=== PATIENT | female | born 1940 | race Caucasian/White ===

== ENCOUNTER 2021-04-18 20:00 | Inpatient (IN) | payer MEDICARE, BC ==
[~2021-04-18] VITALS: Ht 157.5 cm; Wt 60.9 kg
[2021-04-18 20:00] VITALS: BP 130/64
[~2021-04-18 20:00] MED LIST: AMLO-186 PO; LEVO25TA4 PO; POTA10TA12 PO; SENN-22 PO; SPIR25TA5 PO; TRAZ-123 PO
--- NOTE | 2021-04-18 20:26 | PDOC1 ---
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 She had no surgery per her pond sawyer and since that time her postsurgical wounds have been slow to heal. States that she has been on many weeks of oral antibiotics (Bactrim and Keflex, without improvement. She was recently admitted at [facility] and treated with IV vancomycin. It was decided that she would likely benefit from transfer to [facility] to continue her medical therapy along with additional wound care treatment that cannot be provided at [facility]. She reports some pain to bilateral ankles with associated itching. She denies any fever, nausea, chills, vomiting, or diarrhea. Will admit patient for further medical management. Past Medical History Past Medical History Squamous cell cancer of ankles, HTN, GERD, hearing loss. Past Surgical History Past Surgical History Cataract surgery, hysterectomy, Bala fundoplication Family History Family History CVA Social History Smoke: Quit ALCOHOL: none Drugs: None Current Medications Current Medications Active Scripts Active Senna-Time S Tablet (Sennosides/Docusate Sodium) 1 Each Tablet 1 Tab PO DAILY Reported Trazodone Hcl 100 Mg Tablet 1 Tab PO HS Levothyroxine Sodium 25 Mcg Tablet 1 Tab PO DAILY Potassium Chloride 10 Meq Capsule.er 10 Meq PO BID Spironolactone 25 Mg Tablet 1 Tab PO BID Amlodipine Besylate 5 Mg Tablet 5 Mg PO BID Allergies Allergies: Coded Allergies: adhesive tape (Verified Allergy, Intermediate, 02/18/16) ROS Review of System GENERAL: No history of weight change, weakness or fevers. SKIN: No bruising, hair changes or rashes. EYES: No blurred, double or loss of vision. NOSE AND THROAT: No history of nosebleeds, hoarseness or sore throat. HEART: Denies chest pain, denies palpitations. LUNGS: Denies cough, hemoptysis, wheezing or shortness of breath. GASTROINTESTINAL: Constipation. Denies nausea, vomiting, abdominal pain. GENITOURINARY: Denies dysuria, frequency, urgency, hematuria. NEUROLOGIC: Denies history of numbness, tingling, tremor or weakness. PSYCHIATRIC: Denies anxiety, denies depression. ENDOCRINE: No history of heat or cold intolerance, polyuria or polydipsia. EXTREMITIES: Bilateral ankle cellulitis, itching to bilateral ankles. Denies muscle weakness, joint pain, pain on walking or stiffness. Physical Exam Physical Exam General: Alert, Oriented X3, Cooperative, No acute distress HEENT: PERRLA, EOMI Lungs: Clear to auscultation, Normal air movement Heart: RRR, no murmurs Cardiovascular: S1, S2. Distal pulses intact Abdomen: Normal bowel sounds, Soft, No tenderness Extremities: No clubbing, No cyanosis Skin: Erythema of both lower extremities from distal ankle up to mid almanza (>10 cm). There is an eschar over the anterior surface of right almanza. Neuro: Normal speech, Normal tone, Sensation intact Psych/Mental Status: Mental status NL, Mood NL PHYSICAL EXAMINATION: GENERAL: When I saw her, this is a pleasant, alert female. VITAL SIGNS: Her initial vital signs showed a blood pressure 97/62, temperature 98.4 degrees Fahrenheit. Her oxygen saturation was 94% on room air. Her pulse is 73 and regular. HEENT: Head is without trauma. Pupils are reactive. Sclerae nonicteric. Oropharynx clear. NECK: Supple. No bruits. LUNGS: Clear. CARDIOVASCULAR: Regular heart tones. ABDOMEN: Soft. EXTREMITIES: Showed significant swelling, erythema of both lower extremities from the ankles extending up to her knees. SKIN: Warm and dry. There is an eschar and scar tissue over the anterior surface of her right almanza. Distal pulses are intact. PERTINENT LABORATORY STUDIES: The hemoglobin on admission was 13.9 g/dL with a white count of 14,000. Electrolytes within normal range. Blood sugar is 111. Transaminases normal. Cardiac enzymes negative. ASSESSMENT: 1. An 80-year-old female with cellulitis of both legs related to her squamous cell cancer of the skin with recent procedures. 2. Essential hypertension, now she is a bit hypotensive. 3. Mild dehydration, on diuretics. 4. History of asthma. 5. Gastroesophageal reflux disease. VTE Prophylaxis Ordered VTE Prophylaxis Devices: No VTE Pharmacological Prophylaxi: Yes Assessment/Plan Assessment/Plan Bilateral ankle cellulitis Squamous cell cancer of skin s/p recent Mohs procedure Chronic nonhealing ulcers Essential hypertension GERD Plan: We will continue treatment of bilateral lower extremity cellulitis with vancomycin and broaden coverage with IV Zosyn. Please consultation to ID due to failed outpatient treatment Will consult wound care nurse and Dr. Ruiz for possible hyperbaric treatment Follow blood cultures that were performed at [facility]; no growth to date after 2 days. Will obtain Doppler of lower extremities to evaluate arterial blood flow Supportive care Resume home medications FEN - Cardiac diet PPX - Heparin FULL CODE Dispo - inpatient for above Patient names her daughter (Jo Ann Helton) as surrogate decision-maker Justifications for Admission Other Justification HAY CORMIER MD Apr 18, 2021 20:26
[2021-04-18] MEDS ORDERED: ACETAMINOPHEN 325 MG TABLET. PO PRN (20:45)
[2021-04-18] MEDS ORDERED: CALCIUM CARBONATE 500 MG TAB.CHEW PO PRN (20:45)
[2021-04-18] MEDS ORDERED: HYDROcodone/APAP 5/325MG 1 TAB TABLET PO PRN (20:45)
[2021-04-18] MEDS ORDERED: ONDANSETRON PF 4 MG/2 ML VIAL. IVP PRN (20:45)
[2021-04-18] MEDS ORDERED: diphenhydrAMINE 50 MG/ML VIAL IVP PRN ×2 (20:45)
[2021-04-18] MEDS ORDERED: ZOLPIDEM 5 MG TABLET. PO PRN (20:45)
[2021-04-18] MEDS ORDERED: IV NORMAL SALINE 1000ML BAG 1,000 ML IV ONE (20:45)
[2021-04-18] MEDS ORDERED: MAGNESIUM HYDROXIDE 2,400 MG/30 ML ORAL.SUSP. PO PRN (20:45)
[2021-04-18] MEDS ORDERED: PIP/TAZO PER PHARMACY MC PRN (20:45)
[2021-04-18] MEDS ORDERED: MAG HYDROX/ALUMINUM HYD/SIMETH 30 ML ORAL.SUSP PO PRN (20:45)
[2021-04-18] MEDS: VANCOMYCIN PER PHARMACY MC PRN (20:55)
[2021-04-18] MEDS ORDERED: UBID50TA PO (20:55)
[2021-04-18] MEDS ORDERED: LATA7.5D OU (20:55)
[2021-04-18] MEDS ORDERED: FLUT12HF3 IH (20:55)
[2021-04-18] MEDS ORDERED: TRAZ-118 PO (20:58)
[2021-04-18] MEDS ORDERED: SENN8.6T99 PO (20:58)
[2021-04-18] MEDS ORDERED: DIPH25TA24 PO (20:58)
[2021-04-18] MEDS ORDERED: LORazepam 0.5 MG TABLET PO PRN (21:00)
--- NOTE | 2021-04-18 21:01 | NUR ---
Pharmacy Vancomycin Dosing Note S:Consulted to monitor and dose vancomycin started 04/18/21. O:YOCASTA ASENCIO is a 80 year old F with Cellulitis. Height: 5 feet, 2 inches Weight: 60.9 kg [place] Body Weight: 50.10 Adjusted Body Weight: 54.42 Dosing Weight: Actual Other Antibiotics: zosyn LABS: Last BUN: 8 Last Creatinine: 0.8 Creatinine Clearance: 39 mL/min Last WBC: 8.6 Last Procalcitonin: -- Tmax (past 24 hours): afebrile Microbiology: 04/16: blood cx - NGTD (from [facility]) I/O: 840 / -- Drug Levels: Last Trough level: 6.8 on 04/18/21 at 1620 Last dose given 04/17/21 at 1724 Vancomycin Dosing: Loading Dose: 1500 mg x1 Dosing Weight: Actual Target Trough: 10-20 A: Based on: patient trough level from [facility]. P: 1. Begin Vancomycin 1000 mg IV q12h. 2. Follow up trough level as needed. 3. Pharmacy will continue to monitor, follow and adjust therapy as needed. [facility], 04/18/21 [id number]
[2021-04-18 21:41] LABS: BASO # 0.1 x10^3/uL (0.0-0.2); BASO % 1 % (0-3); EOS # 0.1 x10^3/uL (0.0-0.7); EOS % 1 % (0-3); HEMATOCRIT 39.1 % (36.0-47.0); LYMPH # 1.8 x10^3/uL (1.0-4.8); LYMPH % 28 % (24-48); MEAN CORPUSCULAR HEMOGLOBIN 30 pg (25-35); MEAN CORPUSCULAR HGB CONC 33 g/dL (31-37); MEAN CORPUSCULAR VOLUME 90 fL (79-100); MONO # 0.8 x10^3/uL (0.0-1.1); MONO % 12 % (0-9); NEUT # 3.8 x10^3/uL (1.8-7.7); NEUT % 58 % (31-73); PLATELET COUNT 253 x10^3/uL (140-400); RED BLOOD COUNT 4.33 x10^6/uL (3.50-5.40); RED CELL DISTRIBUTION WIDTH 14.2 % (11.5-14.5); WHITE BLOOD COUNT 6.6 x10^3/uL (4.0-11.0)
[2021-04-18 21:55] LABS: ALBUMIN 2.9 g/dL (3.4-5.0); ALBUMIN/GLOBULIN RATIO 0.9 (1.0-1.7); C-REACTIVE PROTEIN 60.1 mg/L (0-3.3); CALCIUM 8.4 mg/dL (8.5-10.1); CREATININE 0.9 mg/dL (0.6-1.0); GFR 60.1; POTASSIUM 3.5 mmol/L (3.5-5.1); TOTAL BILIRUBIN 0.3 mg/dL (0.2-1.0); TOTAL PROTEIN 6.1 g/dL (6.4-8.2)
[2021-04-18 23:00] VITALS: BP 118/56
[2021-04-18] MEDS: PIPERACILLIN/TAZOBACTAM 3.375 GM in IV NORMAL SALINE 50ML 50 ML IV SCH (23:24)
[2021-04-18] MEDS: SENNOSIDES/DOCUSATE 8.6/50MG TABLET. PO SCH (23:25)
[2021-04-18] MEDS: HYDROcodone/APAP 5/325MG 1 TAB TABLET PO PRN (23:25)
[2021-04-18] MEDS: HEPARIN for SUB-Q USE 5,000 UNIT/ML VIAL. SQ SCH (23:39)
[2021-04-18] MEDS: traZODone 100 MG TABLET. PO SCH (23:44)
[2021-04-19] MEDS: LATANOPROST 0.005% OPHTH SOLUTION 2.5ML BOTTLE. OU SCH ×2 (00:05→21:17)
[2021-04-19] MEDS: VANCOMYCIN 1 GM in IV NORMAL SALINE 250ML 250 ML IV SCH ×2 (00:06→10:13)
[2021-04-19 03:00] VITALS: BP 116/58
[2021-04-19] MEDS: PIPERACILLIN/TAZOBACTAM 3.375 GM in IV NORMAL SALINE 50ML 50 ML IV SCH ×4 (06:00→23:42)
--- NOTE | 2021-04-19 06:03 | NUR ---
Transferred from [place]' last night at 1999. Dr. Combs here to see patient.
[2021-04-19 07:15] VITALS: BP 115/58
[2021-04-19 07:36] LABS: BASO % 1 % (0-3); EOS # 0.1 x10^3/uL (0.0-0.7); EOS % 1 % (0-3); HEMATOCRIT 36.2 % (36.0-47.0); LYMPH # 1.5 x10^3/uL (1.0-4.8); LYMPH % 29 % (24-48); MEAN CORPUSCULAR HEMOGLOBIN 30 pg (25-35); MEAN CORPUSCULAR HGB CONC 33 g/dL (31-37); MEAN CORPUSCULAR VOLUME 90 fL (79-100); MONO # 0.6 x10^3/uL (0.0-1.1); MONO % 12 % (0-9); NEUT # 2.8 x10^3/uL (1.8-7.7); NEUT % 57 % (31-73); PLATELET COUNT 231 x10^3/uL (140-400); RED BLOOD COUNT 4.01 x10^6/uL (3.50-5.40); RED CELL DISTRIBUTION WIDTH 13.8 % (11.5-14.5)
[2021-04-19 07:55] LABS: CALCIUM 8.1 mg/dL (8.5-10.1); CREATININE 0.8 mg/dL (0.6-1.0); GFR 68.8; POTASSIUM 3.5 mmol/L (3.5-5.1)
--- NOTE | 2021-04-19 08:06 | RAD ---
Bilateral lower extremity arterial duplex study 04/18/2021 CLINICAL HISTORY: Nonhealing ulcers involving both legs. TECHNIQUE: Using a combination real-time ultrasound imaging and color-flow and pulse Doppler imaging techniques, duplex evaluation of the major arterial structures of both lower extremities was performe d. Multiple images were obtained. FINDINGS: Mild to moderate atheromatous/atherosclerotic plaque formation seen involving the major art erial structures of both lower extremities. Monophasic arterial waveforms are seen involving the post erior tibial, peroneal and anterior tibial arteries along with the dorsalis pedis arteries bilaterall y. The peak systolic velocities taper normally. No hemodynamically significant stenosis or area of oc clusion is seen by ultrasound. IMPRESSION: Mild to moderate atheromatous plaque formation is seen involving the major arterial struc tures of both lower extremities. No hemodynamically significant stenosis or area of occlusion is seen . Electronically signed by: Joe Cedillo MD (04/19/2021 8:03 AM) [id number]
[2021-04-19] MEDS: SENNOSIDES/DOCUSATE 8.6/50MG TABLET. PO SCH ×2 (08:34→21:18)
[2021-04-19] MEDS: HYDROcodone/APAP 5/325MG 1 TAB TABLET PO PRN ×4 (08:34→21:34)
[2021-04-19] MEDS: HEPARIN for SUB-Q USE 5,000 UNIT/ML VIAL. SQ SCH ×2 (08:40→21:29)
[2021-04-19] MEDS: VANCOMYCIN PER PHARMACY MC PRN (09:28)
--- NOTE | 2021-04-19 10:55 | NUR ---
SW following. Discussed with RN, pt from home alone, room air, cardiac diet. ID following. RN advised no SW needs at this time. SW will continue to follow.
[2021-04-19 11:04] VITALS: BP 115/51
--- NOTE | 2021-04-19 12:46 | CONS ---
DATE OF CONSULTATION: 04/19/2021 REFERRING PHYSICIAN: Jose Raul Ly MD. REASON FOR CONSULTATION: Bilateral lower extremity cellulitis. HISTORY OF PRESENT ILLNESS: An 80-year-old female who underwent Mohs surgery at [facility] couple of weeks ago with history of squamous cell carcinoma around her ankles. The patient had been following with wound team at [facility]. She was transferred here for bilateral lower extremity cellulitis, not responding to oral antibiotics. The patient had surgery done by and then was referred to apricot washer for postsurgical wounds, which were slow to heal. The patient had been on oral antibiotics, doxycycline followed by Bactrim and Keflex without improvement. She was recently admitted at [facility] where she received IV vancomycin. The patient was transferred here for further evaluation and treatment. The patient continues to have pain mainly around the right lower extremity wound along with itching. Left lower extremity wound is healing better. She denies any fevers, chills, nausea, vomiting, diarrhea or abdominal pain. PAST MEDICAL HISTORY: Hypertension, GERD, squamous cell carcinoma of the ankles, history of hearing loss. PAST SURGICAL HISTORY: Reviewed. FAMILY HISTORY: Reviewed. SOCIAL HISTORY: Quit smoking, ETOH, illicit drug use. CURRENT MEDICATIONS: IV vancomycin and Zosyn. Other medications reviewed in medication list. ALLERGIES: ADHESIVE TAPE, LATEX AND RAGWEED. REVIEW OF SYSTEMS: Negative except for above in HPI. PHYSICAL EXAMINATION: VITAL SIGNS: Temperature 98.1, pulse 62, respirations 16, blood pressure 115/51, oxygen saturation 96% on room air. GENERAL: Alert, oriented x 3 female, lying in bed comfortably, in no acute distress. HEENT: Normocephalic, atraumatic. Anicteric. No thrush. NECK: Supple, no JVD. LUNGS: Clear bilaterally. No wheezing. HEART: S1, S2. No gallops or murmurs. ABDOMEN: Soft, nontender, nondistended. EXTREMITIES: No edema, no cyanosis. SKIN: There are 2 ulcers present in both the lower extremities, right greater than left around the almanza with some yellowish granulation tissue with surrounding mild redness mainly over the right almanza, tender. No gross purulence. No bone exposure. NEUROLOGIC: Alert, oriented x 3, grossly nonfocal. PSYCHIATRIC: Calm and cooperative. LABORATORY DATA: WBC 5, hemoglobin 12, hematocrit 36.2, platelets 231. Sodium 142, potassium 3.5, chloride 108, bicarb 26, BUN 9, creatinine 0.8, glucose 79. Procalcitonin 0.10. IMAGING: Doppler ultrasound of lower extremity, mild to moderate erythematous plaque formation seen involving the major arterial structures of both lower extremities. No hemodynamically significant stenosis or area of occlusion is seen. IMPRESSION: 1. Bilateral lower extremity nonhealing wounds with mild secondary superimposed cellulitis. 2. History of squamous cell carcinoma, status post Mohs done at [facility] couple of months ago followed by nonhealing wounds, treated with empiric outpatient oral antibiotics, which failed. 3. Hypertension. 4. Gastroesophageal reflux disease. 5. Hearing loss. RECOMMENDATIONS: 1. Discontinue IV vancomycin. 2. Start daptomycin. 3. Continue Zosyn. 4. Add micafungin. 5. Continue local wound care as directed. 6. Elevate lower extremity. 7. Monitor labs and cultures. 8. Continue supportive care. Discussed with RN. Thank you for allowing me to participate in this patient's care. If you have any questions, do not hesitate to contact me. HARRY/LILLI DR: Morteza TID: [phone] VIVIAN
[2021-04-19] MEDS: MICAFUNGIN 100 MG in IV DEXTROSE 5% 100ML 100 ML IV SCH (13:02)
--- NOTE | 2021-04-19 13:31 | PDOC ---
[employer] PROGRESS NOTE Date of Service DOS: DATE: 04/19/21 TIME: 13:26 Chief Complaint Chief Complaint 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 Cataract surgery Hysterectomy History of Present Illness History of Present Illness 04/19/2021: Pt was seen and examined. Chart reviewed. Discussed with Wound Care. Discussed with RN. Pt appears comfortable in NAD and talkative during interview. 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 0.9 % NS running at 50 ml/hr Vitals/I&O Vitals/I&O: Vital Signs Date Time Temp Pulse Resp B/P (MAP) Pulse Ox O2 Delivery O2 Flow Rate FiO2 04/19/21 12:59 96 Room Air 04/19/21 11:04 98.1 62 16 115/51 (72) 98.1 I & O 04/18/21 04/18/21 04/19/21 15:00 23:00 07:00 Intake Total 240 ml Output Total 500 ml Balance 240 ml -500 ml Physical Exam Physical Exam: Pt laying in bed in NAD. Bandages to her lower extremities with erythema that hasn't changed since previous day marking. General: Alert, Oriented X3, Cooperative Heart: Regular rate, Normal S1, Normal S2 Lungs: Clear Abdomen: Soft, No tenderness Extremities: No clubbing, No cyanosis, Normal pulses Skin: Other (Bandage to BL anterior shins and ankles. No obvious worsening erythema from previous day markings. ) Labs Labs: Laboratory Tests Test 04/18/21 21:20 04/19/21 06:25 White Blood Count 6.6 x10^3/uL (4.0-11.0) 5.0 x10^3/uL (4.0-11.0) Red Blood Count 4.33 x10^6/uL (3.50-5.40) 4.01 x10^6/uL (3.50-5.40) Hemoglobin 13.0 g/dL (12.0-15.5) 12.0 g/dL (12.0-15.5) Hematocrit 39.1 % (36.0-47.0) 36.2 % (36.0-47.0) Mean Corpuscular Volume 90 fL (79-100) 90 fL (79-100) Mean Corpuscular Hemoglobin 30 pg (25-35) 30 pg (25-35) Mean Corpuscular Hemoglobin Concent 33 g/dL (31-37) 33 g/dL (31-37) Red Cell Distribution Width 14.2 % (11.5-14.5) 13.8 % (11.5-14.5) Platelet Count 253 x10^3/uL (140-400) 231 x10^3/uL (140-400) Neutrophils (%) (Auto) 58 % (31-73) 57 % (31-73) Lymphocytes (%) (Auto) 28 % (24-48) 29 % (24-48) Monocytes (%) (Auto) 12 % (0-9) 12 % (0-9) Eosinophils (%) (Auto) 1 % (0-3) 1 % (0-3) Basophils (%) (Auto) 1 % (0-3) 1 % (0-3) Neutrophils # (Auto) 3.8 x10^3/uL (1.8-7.7) 2.8 x10^3/uL (1.8-7.7) Lymphocytes # (Auto) 1.8 x10^3/uL (1.0-4.8) 1.5 x10^3/uL (1.0-4.8) Monocytes # (Auto) 0.8 x10^3/uL (0.0-1.1) 0.6 x10^3/uL (0.0-1.1) Eosinophils # (Auto) 0.1 x10^3/uL (0.0-0.7) 0.1 x10^3/uL (0.0-0.7) Basophils # (Auto) 0.1 x10^3/uL (0.0-0.2) 0.0 x10^3/uL (0.0-0.2) Sodium Level 139 mmol/L (136-145) 142 mmol/L (136-145) Potassium Level 3.5 mmol/L (3.5-5.1) 3.5 mmol/L (3.5-5.1) Chloride Level 104 mmol/L (98-107) 108 mmol/L (98-107) Carbon Dioxide Level 27 mmol/L (21-32) 26 mmol/L (21-32) Anion Gap 8 (6-14) 8 (6-14) Blood Urea Nitrogen 13 mg/dL (7-20) 9 mg/dL (7-20) Creatinine 0.9 mg/dL (0.6-1.0) 0.8 mg/dL (0.6-1.0) Estimated GFR (Cockcroft-Gault) 60.1 68.8 BUN/Creatinine Ratio 14 (6-20) Glucose Level 106 mg/dL (70-99) 79 mg/dL (70-99) Calcium Level 8.4 mg/dL (8.5-10.1) 8.1 mg/dL (8.5-10.1) Total Bilirubin 0.3 mg/dL (0.2-1.0) Aspartate Amino Transf (AST/SGOT) 14 U/L (15-37) Alanine Aminotransferase (ALT/SGPT) 22 U/L (14-59) Alkaline Phosphatase 68 U/L (46-116) C-Reactive Protein, Quantitative 60.1 mg/L (0-3.3) Total Protein 6.1 g/dL (6.4-8.2) Albumin 2.9 g/dL (3.4-5.0) Albumin/Globulin Ratio 0.9 (1.0-1.7) Procalcitonin 0.10 ng/mL (0.00-0.10) Review of Systems Review of Systems: Chronic ulcer Open wounds Assessment and Plan Assessmemt and Plan 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 Cataract surgery Hysterectomy Plan: Continue supportive care with IVF Anbx (Zosyn, Daptomycin) Appreciate further input from subspecialty team Wound care PRN pain control PRN benadryl for pruritus DVT prophylaxis Trend labs Home meds PT/OT Encourage PO intake Full code Comment Review of Relevant I have reviewed the following items kimberly (where applicable) has been applied. Medications: Current Medications Medications (Trade) Dose Ordered Sig/Bubba Route PRN Reason Start Time Stop Time Status Last Admin Dose Admin Vancomycin HCl (Vanco Per Pharmacy) 1 each PRN DAILY PRN MC SEE COMMENTS 04/18/21 20:45 04/19/21 12:16 DC 04/19/21 09:28 Sodium Chloride 1,000 ml @ 100 mls/hr 1X ONCE IV 04/18/21 20:45 04/19/21 06:44 DC 04/18/21 20:45 Piperacillin Sod/ Tazobactam Sod 3.375 gm/Sodium Chloride 50 ml @ 100 mls/hr Q6HRS IV 04/18/21 21:00 04/19/21 12:27 Acetaminophen/ Hydrocodone Bitart (Lortab 5/325) 1 tab PRN Q4HRS PRN PO MILD PAIN 1-3 04/18/21 20:45 04/19/21 12:29 Senna/Docusate Sodium (Senna Plus) 1 tab BID PO 04/18/21 21:00 04/19/21 08:34 Heparin Sodium (Porcine) (Heparin Sodium) 5,000 unit Q12HR SQ 04/18/21 21:00 04/19/21 08:40 Vancomycin HCl 1 gm/Sodium Chloride 250 ml @ 250 mls/hr Q12H IV 04/18/21 22:00 04/19/21 12:09 DC 04/19/21 10:13 Trazodone HCl (Desyrel) 100 mg HS PO 04/18/21 23:21 04/18/21 23:44 Latanoprost (Xalatan) 1 drop QHS OU 04/18/21 23:51 04/19/21 00:05 Micafungin Sodium 100 mg/Dextrose 100 ml @ 100 mls/hr Q24H IV 04/19/21 13:00 04/19/21 13:02 Justifications for Admission General Conditions Other justification for admit: Bilateral lower extremity cellulitis Other Justification SHIN WU III DO Apr 19, 2021 13:31
[2021-04-19] MEDS: DAPTOMYCIN IV SCH (14:46)
[2021-04-19] MEDS: NORMAL SALINE IV SCH (14:46)
[2021-04-19 15:08] VITALS: BP 99/55
--- NOTE | 2021-04-19 16:40 | NUR ---
Wound/Ostomy Care Wound Type/Assessment: Patient seen per wound care consult. See wound assessment. Patient has bilateral lower leg stasis ulcers secondary to Moh's procedure. Right lower leg is reddened, dry slough/eschar covered and very painful. The left lower leg is draining creamy drainage and is sloughy and is also painful. Patient had been seen in another wound care clinic but states she would now like to come here with us in the wound clinic. Wounds cleansed, assessed, measured, and pictured. Treatment Recommendations/Plan: Recommendations for honey alginate to the wound on the left leg to help manage the drainage but to also help breakdown the slough, and to the right lower leg apply medi-honey gel to xeroform gauze and place to wound bed, then cover with ABD pads and kerlix. Change every 2-3 days. Dressings applied. No other wounds noted. Education provided: Patient educated on dressing changes and PU prevention. Offloading surface/device: N/A Recommended Referrals/Tests: Will order for vascular consult due to the patient's arterial duplex results. Discharge Recommendations for dressings: Dressing change instructions left in room as well as extra honey alginate and medi-honey gel. Bed lowered and call light in reach. Wound care will follow up on Thursday along with Dr. Ruiz for reassessment.
[2021-04-19 19:00] VITALS: BP 114/60
[2021-04-19] MEDS: LACTOBACILLUS RHAMNOSUS GG 1 CAPSULE. PO SCH (21:17)
[2021-04-19] MEDS: traZODone 100 MG TABLET. PO SCH (21:18)
[2021-04-19 23:00] VITALS: BP 117/55
[2021-04-20 03:00] VITALS: BP 110/49
[2021-04-20] MEDS: PIPERACILLIN/TAZOBACTAM 3.375 GM in IV NORMAL SALINE 50ML 50 ML IV SCH ×3 (05:40→19:08)
[2021-04-20 07:00] VITALS: BP 126/53
[2021-04-20 08:49] LABS: BASO % 1 % (0-3); EOS # 0.1 x10^3/uL (0.0-0.7); EOS % 2 % (0-3); HEMATOCRIT 38.7 % (36.0-47.0); HEMOGLOBIN 12.8 g/dL (12.0-15.5); LYMPH # 1.5 x10^3/uL (1.0-4.8); LYMPH % 28 % (24-48); MEAN CORPUSCULAR HEMOGLOBIN 30 pg (25-35); MEAN CORPUSCULAR HGB CONC 33 g/dL (31-37); MEAN CORPUSCULAR VOLUME 91 fL (79-100); MONO # 0.6 x10^3/uL (0.0-1.1); MONO % 11 % (0-9); NEUT # 3.1 x10^3/uL (1.8-7.7); NEUT % 59 % (31-73); PLATELET COUNT 262 x10^3/uL (140-400); RED BLOOD COUNT 4.25 x10^6/uL (3.50-5.40); RED CELL DISTRIBUTION WIDTH 13.9 % (11.5-14.5); WHITE BLOOD COUNT 5.3 x10^3/uL (4.0-11.0)
[2021-04-20] MEDS: SENNOSIDES/DOCUSATE 8.6/50MG TABLET. PO SCH ×2 (09:00→22:33)
[2021-04-20 09:01] LABS: CALCIUM 8.3 mg/dL (8.5-10.1); CREATININE 0.9 mg/dL (0.6-1.0); GFR 60.1; POTASSIUM 3.5 mmol/L (3.5-5.1)
--- NOTE | 2021-04-20 09:10 | PDOC ---
Infectious Disease Note Subjective: Subjective Patient without complaints Vital Signs: Vital Signs Vital Signs Date Time Temp Pulse Resp B/P (MAP) Pulse Ox O2 Delivery O2 Flow Rate FiO2 04/20/21 07:00 98.5 73 18 126/53 (77) 93 Room Air 98.5 Physical Exam: PHYSICAL EXAM GENERAL: Alert, oriented x 3 female, lying in bed comfortably, in no acute distress. HEENT: Normocephalic, atraumatic. Anicteric. No thrush. NECK: Supple, no JVD. LUNGS: Clear bilaterally. No wheezing. HEART: S1, S2. No gallops or murmurs. ABDOMEN: Soft, nontender, nondistended. EXTREMITIES: No edema, no cyanosis. SKIN: There are 2 ulcers present in both the lower extremities, right greater than left around the almanza with some yellowish granulation tissue with surrounding mild redness mainly over the right almanza, tender. No gross purulence. No bone exposure. NEUROLOGIC: Alert, oriented x 3, grossly nonfocal. PSYCHIATRIC: Calm and cooperative. Medications: Inpatient Meds: Medications reviewed. Labs: Lab Laboratory Tests Test 04/20/21 08:15 White Blood Count 5.3 x10^3/uL (4.0-11.0) Red Blood Count 4.25 x10^6/uL (3.50-5.40) Hemoglobin 12.8 g/dL (12.0-15.5) Hematocrit 38.7 % (36.0-47.0) Mean Corpuscular Volume 91 fL (79-100) Mean Corpuscular Hemoglobin 30 pg (25-35) Mean Corpuscular Hemoglobin Concent 33 g/dL (31-37) Red Cell Distribution Width 13.9 % (11.5-14.5) Platelet Count 262 x10^3/uL (140-400) Neutrophils (%) (Auto) 59 % (31-73) Lymphocytes (%) (Auto) 28 % (24-48) Monocytes (%) (Auto) 11 % (0-9) Eosinophils (%) (Auto) 2 % (0-3) Basophils (%) (Auto) 1 % (0-3) Neutrophils # (Auto) 3.1 x10^3/uL (1.8-7.7) Lymphocytes # (Auto) 1.5 x10^3/uL (1.0-4.8) Monocytes # (Auto) 0.6 x10^3/uL (0.0-1.1) Eosinophils # (Auto) 0.1 x10^3/uL (0.0-0.7) Basophils # (Auto) 0.0 x10^3/uL (0.0-0.2) Sodium Level 142 mmol/L (136-145) Potassium Level 3.5 mmol/L (3.5-5.1) Chloride Level 107 mmol/L (98-107) Carbon Dioxide Level 27 mmol/L (21-32) Anion Gap 8 (6-14) Blood Urea Nitrogen 8 mg/dL (7-20) Creatinine 0.9 mg/dL (0.6-1.0) Estimated GFR (Cockcroft-Gault) 60.1 Glucose Level 89 mg/dL (70-99) Calcium Level 8.3 mg/dL (8.5-10.1) Objective: Assessment: 1. Bilateral lower extremity nonhealing wounds with mild secondary superimposed cellulitis. 2. History of squamous cell carcinoma, status post Mohs done at [facility] couple of months ago followed by nonhealing wounds, treated with empiric outpatient oral antibiotics, which failed. 3. Hypertension. 4. Gastroesophageal reflux disease. 5. Hearing loss. Plan: Plan of Care Continue daptomycin Zosyn and micafungin Continue local wound care as directed Elevate lower extremity Monitor labs and cultures Continue supportive care DAVY VILLAR MD Apr 20, 2021 09:10
--- NOTE | 2021-04-20 10:06 | PDOC ---
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 Cataract surgery Hysterectomy History of Present Illness History of Present Illness 04/20/2021: Pt was seen and examined. Chart reviewed. Pt appears comfortable in NAD, talkative during interview, and smiling on approach. States that she has not had a BM since Thursday (4 days prior). Mariya states that she has a previous hx of constipation since and has been taking senna and dulcolax with relief. Pt states that she has not tried milk of magnesia but is open to continuing. She denies any current pain. Pt also notes decreased appetite with only consuming a probiotic yogurt this morning. 04/19/2021: Pt was seen and examined. Chart reviewed. Discussed with Wound Care. Discussed with RN. Pt appears comfortable in NAD and talkative during interview. 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 0.9 % NS running at 50 ml/hr Vitals/I&O Vitals/I&O: Vital Signs Date Time Temp Pulse Resp B/P (MAP) Pulse Ox O2 Delivery O2 Flow Rate FiO2 04/20/21 07:00 98.5 73 18 126/53 (77) 93 Room Air 98.5 I & O 04/19/21 04/19/21 04/20/21 15:00 23:00 07:00 Intake Total 240 ml 240 ml Balance 240 ml 240 ml Physical Exam Physical Exam: GENERAL: Alert, oriented x 3 female, lying in bed comfortably, in no acute distress. HEENT: Normocephalic, atraumatic. Anicteric. No thrush. NECK: Supple, no JVD. LUNGS: Clear bilaterally. No wheezing. HEART: S1, S2. No gallops or murmurs. ABDOMEN: Soft, nontender, nondistended. EXTREMITIES: No edema, no cyanosis. SKIN: There are 2 ulcers present in both the lower extremities, right greater than left around the almanza with some yellowish granulation tissue with surrounding mild redness mainly over the right almanza, tender. No gross purulence. No bone exposure. NEUROLOGIC: Alert, oriented x 3, grossly nonfocal. PSYCHIATRIC: Calm and cooperative. General: Alert, Oriented X3, Cooperative Heart: Regular rate, Normal S1, Normal S2 Lungs: Clear Abdomen: Soft, No tenderness Extremities: No clubbing, No cyanosis, Normal pulses Skin: Other (Bandage to BL anterior shins and ankles. No obvious worsening erythema from previous day markings. ) Labs Labs: Laboratory Tests Test 04/20/21 08:15 White Blood Count 5.3 x10^3/uL (4.0-11.0) Red Blood Count 4.25 x10^6/uL (3.50-5.40) Hemoglobin 12.8 g/dL (12.0-15.5) Hematocrit 38.7 % (36.0-47.0) Mean Corpuscular Volume 91 fL (79-100) Mean Corpuscular Hemoglobin 30 pg (25-35) Mean Corpuscular Hemoglobin Concent 33 g/dL (31-37) Red Cell Distribution Width 13.9 % (11.5-14.5) Platelet Count 262 x10^3/uL (140-400) Neutrophils (%) (Auto) 59 % (31-73) Lymphocytes (%) (Auto) 28 % (24-48) Monocytes (%) (Auto) 11 % (0-9) Eosinophils (%) (Auto) 2 % (0-3) Basophils (%) (Auto) 1 % (0-3) Neutrophils # (Auto) 3.1 x10^3/uL (1.8-7.7) Lymphocytes # (Auto) 1.5 x10^3/uL (1.0-4.8) Monocytes # (Auto) 0.6 x10^3/uL (0.0-1.1) Eosinophils # (Auto) 0.1 x10^3/uL (0.0-0.7) Basophils # (Auto) 0.0 x10^3/uL (0.0-0.2) Sodium Level 142 mmol/L (136-145) Potassium Level 3.5 mmol/L (3.5-5.1) Chloride Level 107 mmol/L (98-107) Carbon Dioxide Level 27 mmol/L (21-32) Anion Gap 8 (6-14) Blood Urea Nitrogen 8 mg/dL (7-20) Creatinine 0.9 mg/dL (0.6-1.0) Estimated GFR (Cockcroft-Gault) 60.1 Glucose Level 89 mg/dL (70-99) Calcium Level 8.3 mg/dL (8.5-10.1) Review of Systems Review of Systems: Constipation Chronic Ulcer Assessment and Plan Assessmemt and Plan 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 Cataract surgery Hysterectomy Plan: Continue supportive care Anbx (Zosyn, Daptomycin) Antifungal (micafungin) Appreciate further input from subspecialty team Wound care PRN pain control PRN benadryl for pruritus Trazodone and PRN Ativan Stool softeners DVT prophylaxis Trend labs Home meds PT/OT Elevate lower extremity Encourage PO intake Full code Dispo pending. Comment Review of Relevant I have reviewed the following items kimberly (where applicable) has been applied. Medications: Current Medications Medications (Trade) Dose Ordered Sig/Bubba Route PRN Reason Start Time Stop Time Status Last Admin Dose Admin Lactobacillus Rhamnosus (Culturelle) 1 cap BID PO 04/19/21 21:00 04/19/21 21:17 Daptomycin 300 mg/ Sodium Chloride 50 ml @ 100 mls/hr Q24H IV 04/19/21 14:00 04/19/21 14:46 Micafungin Sodium 100 mg/Dextrose 100 ml @ 100 mls/hr Q24H IV 04/19/21 13:00 04/19/21 13:02 Justifications for Admission General Conditions Other justification for admit: Bilateral lower extremity cellulitis Other Justification SHIN WU III DO Apr 20, 2021 10:06
[2021-04-20] MEDS: HYDROcodone/APAP 5/325MG 1 TAB TABLET PO PRN ×3 (10:21→22:42)
[2021-04-20] MEDS: LACTOBACILLUS RHAMNOSUS GG 1 CAPSULE. PO SCH ×2 (10:21→22:34)
[2021-04-20] MEDS: HEPARIN for SUB-Q USE 5,000 UNIT/ML VIAL. SQ SCH ×2 (10:32→21:00)
[2021-04-20 10:59] VITALS: BP 107/74
--- NOTE | 2021-04-20 13:16 | PDOC ---
Provider Note Date of Service: DATE: 04/20/21 TIME: 13:14 Provider Note Vascular consult dictated Impression: #1 history of squamous cell carcinoma of both lower extremities just proximal to the ankles with open wounds following Mohs procedure. 2. No evidence of significant arterial occlusive disease with only mild atherosclerotic plaquing bilaterally by arterial duplex imaging. 3. History of hypertension Plan: #1 no indication for further vascular imaging or intervention. 2. Continue wound care. Consider hyperbaric therapy. Justifications for Admission General Conditions Other justification for admit: Bilateral lower extremity cellulitis Other Justification JEWEL KIRBY II, MD Apr 20, 2021 13:15
--- NOTE | 2021-04-20 14:40 | CONS ---
DATE OF CONSULTATION: 04/20/2021 VASCULAR SURGERY CONSULTATION CLINICAL HISTORY: This is an 80-year-old female who has a past medical history of squamous cell carcinoma affecting both lower extremities. She has undergone Mohs surgery and now has wounds from the lower extremity just proximal to both ankles. She has some surrounding cellulitis as well. She has been seen at the wound care center for this. We have been asked to see her regarding vascular evaluation. She had arterial duplex imaging, which reveals mild diffuse atherosclerotic peripheral vascular disease with no evidence of significant arterial occlusion bilaterally. PAST MEDICAL HISTORY: Significant for squamous cell cancer as indicated, hypertension, gastroesophageal reflux disease and hearing loss. PAST SURGICAL HISTORY: Includes cataract surgery, hysterectomy and Bala fundoplication. FAMILY HISTORY: Significant for stroke. SOCIAL HISTORY: The patient is a nonsmoker and denies drug or alcohol abuse. CURRENT MEDICATIONS: Reviewed and include spironolactone, levothyroxine, and trazodone. ALLERGIES: INCLUDE CODEINE AND ADHESIVE TAPE. REVIEW OF SYSTEMS: A 12-point review of systems is obtained. She is having no history of claudication, stroke, amaurosis or TIA. She has no complaints of chest pain or shortness of breath and she has no history of claudication. A 12-point review of systems is unremarkable except for some discomfort in the area of the ulceration. PHYSICAL EXAMINATION: GENERAL: The patient is alert and awake. VITAL SIGNS: Stable and she is afebrile. HEENT: Unremarkable. CARDIOVASCULAR: She has palpable pulses and her heart rate is regular. EXTREMITIES: She has wounds on the dorsal aspect of both lower extremities proximal to the ankles from her squamous cell procedures. She has no evidence of arterial insufficiency of the lower extremities by physical exam. NEUROLOGIC: She has no focal deficits. LABORATORY DATA: Includes hemoglobin of 13.9 and white count of 14,000. IMPRESSION: 1. An 80-year-old female with no evidence of significant arterial occlusive disease of either extremity. 2. She has a history of squamous cell cancer and is now undergoing wound care for those areas, bilaterally. 3. History of hypertension. RECOMMENDATIONS: 1. There is no indication for any further vascular imaging or intervention. 2. Agree with wound care followup for her wounds as described. Consider hyperbaric oxygen therapy. 3. We will be available if needed. JOANIE/LILLI DR: JOANIE/pablo TID: [id number]
[2021-04-20 15:00] VITALS: BP 121/49
[2021-04-20] MEDS: MICAFUNGIN 100 MG in IV DEXTROSE 5% 100ML 100 ML IV SCH (17:07)
[2021-04-20] MEDS: DAPTOMYCIN IV SCH (18:05)
[2021-04-20] MEDS: NORMAL SALINE IV SCH (18:05)
[2021-04-20 19:00] VITALS: BP 138/54
[2021-04-20] MEDS: traZODone 100 MG TABLET. PO SCH (22:33)
[2021-04-20] MEDS: LATANOPROST 0.005% OPHTH SOLUTION 2.5ML BOTTLE. OU SCH (22:33)
[2021-04-20 23:07] VITALS: BP 125/57
[2021-04-21] MEDS: PIPERACILLIN/TAZOBACTAM 3.375 GM in IV NORMAL SALINE 50ML 50 ML IV SCH ×4 (00:10→17:48)
[2021-04-21 07:00] VITALS: BP 124/46
[2021-04-21 07:29] LABS: BASO # 0.1 x10^3/uL (0.0-0.2); BASO % 1 % (0-3); EOS # 0.1 x10^3/uL (0.0-0.7); EOS % 2 % (0-3); HEMATOCRIT 37.1 % (36.0-47.0); HEMOGLOBIN 12.5 g/dL (12.0-15.5); LYMPH # 1.6 x10^3/uL (1.0-4.8); LYMPH % 37 % (24-48); MEAN CORPUSCULAR HEMOGLOBIN 30 pg (25-35); MEAN CORPUSCULAR HGB CONC 34 g/dL (31-37); MEAN CORPUSCULAR VOLUME 90 fL (79-100); MONO # 0.5 x10^3/uL (0.0-1.1); MONO % 11 % (0-9); NEUT # 2.1 x10^3/uL (1.8-7.7); NEUT % 48 % (31-73); PLATELET COUNT 244 x10^3/uL (140-400); RED BLOOD COUNT 4.12 x10^6/uL (3.50-5.40); RED CELL DISTRIBUTION WIDTH 13.8 % (11.5-14.5); WHITE BLOOD COUNT 4.3 x10^3/uL (4.0-11.0)
[2021-04-21 07:59] LABS: CALCIUM 8.6 mg/dL (8.5-10.1); GFR 53.2; POTASSIUM 3.5 mmol/L (3.5-5.1)
[2021-04-21] MEDS: SENNOSIDES/DOCUSATE 8.6/50MG TABLET. PO SCH ×2 (08:54→21:46)
[2021-04-21] MEDS: LACTOBACILLUS RHAMNOSUS GG 1 CAPSULE. PO SCH ×2 (08:54→21:46)
[2021-04-21] MEDS: HEPARIN for SUB-Q USE 5,000 UNIT/ML VIAL. SQ SCH ×2 (08:56→21:52)
[2021-04-21] MEDS: oxyCODONE/APAP 5/325 1 TAB TABLET PO PRN ×2 (08:56→15:53)
--- NOTE | 2021-04-21 09:12 | PDOC ---
Infectious Disease Note Subjective: Subjective Patient without complaints Vital Signs: Vital Signs Vital Signs Date Time Temp Pulse Resp B/P (MAP) Pulse Ox O2 Delivery O2 Flow Rate FiO2 04/21/21 07:00 98.0 58 20 124/46 (72) 95 Room Air 98.0 Physical Exam: PHYSICAL EXAM GENERAL: Alert, oriented x 3 female, lying in bed comfortably, in no acute distress. HEENT: Normocephalic, atraumatic. Anicteric. No thrush. NECK: Supple, no JVD. LUNGS: Clear bilaterally. No wheezing. HEART: S1, S2. No gallops or murmurs. ABDOMEN: Soft, nontender, nondistended. EXTREMITIES: No edema, no cyanosis. SKIN: There are 2 ulcers present in both the lower extremities, right greater than left around the almanza with some yellowish granulation tissue with surrounding mild redness mainly over the right almanza, tender. No gross purulence. No bone exposure. NEUROLOGIC: Alert, oriented x 3, grossly nonfocal. PSYCHIATRIC: Calm and cooperative. Medications: Inpatient Meds: Medications reviewed. Labs: Lab Laboratory Tests Test 04/21/21 07:05 White Blood Count 4.3 x10^3/uL (4.0-11.0) Red Blood Count 4.12 x10^6/uL (3.50-5.40) Hemoglobin 12.5 g/dL (12.0-15.5) Hematocrit 37.1 % (36.0-47.0) Mean Corpuscular Volume 90 fL (79-100) Mean Corpuscular Hemoglobin 30 pg (25-35) Mean Corpuscular Hemoglobin Concent 34 g/dL (31-37) Red Cell Distribution Width 13.8 % (11.5-14.5) Platelet Count 244 x10^3/uL (140-400) Neutrophils (%) (Auto) 48 % (31-73) Lymphocytes (%) (Auto) 37 % (24-48) Monocytes (%) (Auto) 11 % (0-9) Eosinophils (%) (Auto) 2 % (0-3) Basophils (%) (Auto) 1 % (0-3) Neutrophils # (Auto) 2.1 x10^3/uL (1.8-7.7) Lymphocytes # (Auto) 1.6 x10^3/uL (1.0-4.8) Monocytes # (Auto) 0.5 x10^3/uL (0.0-1.1) Eosinophils # (Auto) 0.1 x10^3/uL (0.0-0.7) Basophils # (Auto) 0.1 x10^3/uL (0.0-0.2) Sodium Level 141 mmol/L (136-145) Potassium Level 3.5 mmol/L (3.5-5.1) Chloride Level 107 mmol/L (98-107) Carbon Dioxide Level 28 mmol/L (21-32) Anion Gap 6 (6-14) Blood Urea Nitrogen 13 mg/dL (7-20) Creatinine 1.0 mg/dL (0.6-1.0) Estimated GFR (Cockcroft-Gault) 53.2 Glucose Level 88 mg/dL (70-99) Calcium Level 8.6 mg/dL (8.5-10.1) Objective: Assessment: 1. Bilateral lower extremity nonhealing wounds with mild secondary superimposed cellulitis. 2. History of squamous cell carcinoma, status post Mohs done at [facility] couple of months ago followed by nonhealing wounds, treated with empiric outpatient oral antibiotics, which failed. 3. Hypertension. 4. Gastroesophageal reflux disease. 5. Hearing loss. Plan: Plan of Care Continue daptomycin Zosyn and micafungin for now We will de-escalate soon Vascular input noted Continue local wound care as directed Elevate lower extremity Monitor labs and cultures Continue supportive care DAVY VILLAR MD Apr 21, 2021 09:12
[2021-04-21 11:00] VITALS: BP 135/57
[2021-04-21] MEDS: MICAFUNGIN 100 MG in IV DEXTROSE 5% 100ML 100 ML IV SCH (13:44)
--- NOTE | 2021-04-21 14:02 | PDOC ---
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 Cataract surgery Hysterectomy History of Present Illness History of Present Illness 04/21/2021: Pt seen and examined. Chart reviewed. Discussed with RN. Pt cooperative, appreciative of care team's efforts. She expressed frustration about how long her legs are taking to heal. Wound dressings intact, clean, dry. 04/20/2021: Pt was seen and examined. Chart reviewed. Pt appears comfortable in NAD, talkative during interview, and smiling on approach. States that she has not had a BM since Thursday (4 days prior). Mariya states that she has a previous hx of constipation since and has been taking senna and dulcolax with relief. Pt states that she has not tried milk of magnesia but is open to continuing. She denies any current pain. Pt also notes decreased appetite with only consuming a probiotic yogurt this morning. 04/19/2021: Pt was seen and examined. Chart reviewed. Discussed with Wound Care. Discussed with RN. Pt appears comfortable in NAD and talkative during interview. 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 0.9 % NS running at 50 ml/hr Vitals/I&O Vitals/I&O: Vital Signs Date Time Temp Pulse Resp B/P (MAP) Pulse Ox O2 Delivery O2 Flow Rate FiO2 04/21/21 11:00 97.7 63 18 135/57 (83) 98 Room Air 97.7 I & O 04/20/21 04/20/21 04/21/21 15:00 23:00 07:00 Intake Total 240 ml 120 ml Balance 240 ml 120 ml Physical Exam Physical Exam: GENERAL: Alert, oriented x 3 female, lying in bed comfortably, in no acute distress. HEENT: Normocephalic, atraumatic. Anicteric. No thrush. NECK: Supple, no JVD. LUNGS: Clear bilaterally. No wheezing. HEART: S1, S2. No gallops or murmurs. ABDOMEN: Soft, nontender, nondistended. EXTREMITIES: No edema, no cyanosis. SKIN: There are 2 ulcers present in both the lower extremities, right greater than left around the almanza with some yellowish granulation tissue with surrounding mild redness mainly over the right almanza, tender. No gross purulence. No bone exposure. NEUROLOGIC: Alert, oriented x 3, grossly nonfocal. PSYCHIATRIC: Calm and cooperative. General: Alert, Oriented X3, Cooperative Heart: Regular rate, Normal S1, Normal S2 Lungs: Clear Abdomen: Soft, No tenderness Extremities: No clubbing, No cyanosis, Normal pulses Skin: Other (Bandage to BL anterior shins and ankles. No obvious worsening erythema from previous day markings. ) Labs Labs: Laboratory Tests Test 04/21/21 07:05 White Blood Count 4.3 x10^3/uL (4.0-11.0) Red Blood Count 4.12 x10^6/uL (3.50-5.40) Hemoglobin 12.5 g/dL (12.0-15.5) Hematocrit 37.1 % (36.0-47.0) Mean Corpuscular Volume 90 fL (79-100) Mean Corpuscular Hemoglobin 30 pg (25-35) Mean Corpuscular Hemoglobin Concent 34 g/dL (31-37) Red Cell Distribution Width 13.8 % (11.5-14.5) Platelet Count 244 x10^3/uL (140-400) Neutrophils (%) (Auto) 48 % (31-73) Lymphocytes (%) (Auto) 37 % (24-48) Monocytes (%) (Auto) 11 % (0-9) Eosinophils (%) (Auto) 2 % (0-3) Basophils (%) (Auto) 1 % (0-3) Neutrophils # (Auto) 2.1 x10^3/uL (1.8-7.7) Lymphocytes # (Auto) 1.6 x10^3/uL (1.0-4.8) Monocytes # (Auto) 0.5 x10^3/uL (0.0-1.1) Eosinophils # (Auto) 0.1 x10^3/uL (0.0-0.7) Basophils # (Auto) 0.1 x10^3/uL (0.0-0.2) Sodium Level 141 mmol/L (136-145) Potassium Level 3.5 mmol/L (3.5-5.1) Chloride Level 107 mmol/L (98-107) Carbon Dioxide Level 28 mmol/L (21-32) Anion Gap 6 (6-14) Blood Urea Nitrogen 13 mg/dL (7-20) Creatinine 1.0 mg/dL (0.6-1.0) Estimated GFR (Cockcroft-Gault) 53.2 Glucose Level 88 mg/dL (70-99) Calcium Level 8.6 mg/dL (8.5-10.1) Assessment and Plan Assessmemt and Plan 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 Cataract surgery Hysterectomy Plan: Wound care Appreciate subspecialty input (ID) Continue antibiotics (Dapto) Continue Micafungin Encourage po intake Cardiac monitoring Trend labs DVT prophylaxis Full code Comment Review of Relevant I have reviewed the following items kimberly (where applicable) has been applied. Justifications for Admission General Conditions Other justification for admit: Bilateral lower extremity cellulitis Other Justification SHIN WU III DO Apr 21, 2021 14:02
[2021-04-21 15:12] VITALS: BP 120/51
[2021-04-21] MEDS: DAPTOMYCIN IV SCH (15:35)
[2021-04-21] MEDS: NORMAL SALINE IV SCH (15:35)
[2021-04-21 19:00] VITALS: BP 134/65
--- NOTE | 2021-04-21 19:45 | NUR ---
1400 Daptomycin and 1600 Zosyn not infused d/t pt IV infiltrated to her right FA. Unable for IV to be place because of hard stick. IV has been placed at this time
[2021-04-21] MEDS: traZODone 100 MG TABLET. PO SCH (21:46)
[2021-04-21] MEDS: LATANOPROST 0.005% OPHTH SOLUTION 2.5ML BOTTLE. OU SCH (21:46)
[2021-04-21] MEDS: HYDROcodone/APAP 5/325MG 1 TAB TABLET PO PRN (21:55)
[2021-04-21 23:29] VITALS: BP 122/52
[2021-04-22] MEDS: PIPERACILLIN/TAZOBACTAM 3.375 GM in IV NORMAL SALINE 50ML 50 ML IV SCH ×4 (00:27→17:57)
[2021-04-22 03:00] VITALS: BP 118/58
[2021-04-22 07:15] VITALS: BP 107/56
[2021-04-22 07:35] LABS: CALCIUM 8.2 mg/dL (8.5-10.1); CREATININE 0.9 mg/dL (0.6-1.0); GFR 60.1; POTASSIUM 3.2 mmol/L (3.5-5.1)
[2021-04-22 07:37] LABS: BASO % 1 % (0-3); EOS # 0.1 x10^3/uL (0.0-0.7); EOS % 1 % (0-3); HEMATOCRIT 37.3 % (36.0-47.0); HEMOGLOBIN 12.6 g/dL (12.0-15.5); LYMPH # 1.6 x10^3/uL (1.0-4.8); LYMPH % 33 % (24-48); MEAN CORPUSCULAR HEMOGLOBIN 30 pg (25-35); MEAN CORPUSCULAR HGB CONC 34 g/dL (31-37); MEAN CORPUSCULAR VOLUME 89 fL (79-100); MONO # 0.5 x10^3/uL (0.0-1.1); MONO % 10 % (0-9); NEUT # 2.7 x10^3/uL (1.8-7.7); NEUT % 55 % (31-73); PLATELET COUNT 263 x10^3/uL (140-400); RED BLOOD COUNT 4.18 x10^6/uL (3.50-5.40); RED CELL DISTRIBUTION WIDTH 13.9 % (11.5-14.5); WHITE BLOOD COUNT 4.9 x10^3/uL (4.0-11.0)
--- NOTE | 2021-04-22 08:17 | PDOC ---
Infectious Disease Note Subjective: Subjective Patient without complaints Vital Signs: Vital Signs Vital Signs Date Time Temp Pulse Resp B/P (MAP) Pulse Ox O2 Delivery O2 Flow Rate FiO2 04/22/21 03:00 98.0 66 16 118/58 (78) 95 Room Air 98.0 Physical Exam: PHYSICAL EXAM GENERAL: Alert, oriented x 3 female, lying in bed comfortably, in no acute distress. HEENT: Normocephalic, atraumatic. Anicteric. No thrush. NECK: Supple, no JVD. LUNGS: Clear bilaterally. No wheezing. HEART: S1, S2. No gallops or murmurs. ABDOMEN: Soft, nontender, nondistended. EXTREMITIES: No edema, no cyanosis. SKIN: There are ulcers present in both the lower extremities, superficial right , 2 left around the almanza with some yellowish granulation tissue with surrounding mild redness mainly over the right almanza, tender. No gross purulence. No bone exposure. NEUROLOGIC: Alert, oriented x 3, grossly nonfocal. PSYCHIATRIC: Calm and cooperative. Medications: Inpatient Meds: Medications reviewed. Labs: Lab Laboratory Tests Test 04/22/21 06:10 White Blood Count 4.9 x10^3/uL (4.0-11.0) Red Blood Count 4.18 x10^6/uL (3.50-5.40) Hemoglobin 12.6 g/dL (12.0-15.5) Hematocrit 37.3 % (36.0-47.0) Mean Corpuscular Volume 89 fL (79-100) Mean Corpuscular Hemoglobin 30 pg (25-35) Mean Corpuscular Hemoglobin Concent 34 g/dL (31-37) Red Cell Distribution Width 13.9 % (11.5-14.5) Platelet Count 263 x10^3/uL (140-400) Neutrophils (%) (Auto) 55 % (31-73) Lymphocytes (%) (Auto) 33 % (24-48) Monocytes (%) (Auto) 10 % (0-9) Eosinophils (%) (Auto) 1 % (0-3) Basophils (%) (Auto) 1 % (0-3) Neutrophils # (Auto) 2.7 x10^3/uL (1.8-7.7) Lymphocytes # (Auto) 1.6 x10^3/uL (1.0-4.8) Monocytes # (Auto) 0.5 x10^3/uL (0.0-1.1) Eosinophils # (Auto) 0.1 x10^3/uL (0.0-0.7) Basophils # (Auto) 0.0 x10^3/uL (0.0-0.2) Sodium Level 138 mmol/L (136-145) Potassium Level 3.2 mmol/L (3.5-5.1) Chloride Level 104 mmol/L (98-107) Carbon Dioxide Level 26 mmol/L (21-32) Anion Gap 8 (6-14) Blood Urea Nitrogen 10 mg/dL (7-20) Creatinine 0.9 mg/dL (0.6-1.0) Estimated GFR (Cockcroft-Gault) 60.1 Glucose Level 80 mg/dL (70-99) Calcium Level 8.2 mg/dL (8.5-10.1) Objective: Assessment: 1. Bilateral lower extremity nonhealing wounds with mild secondary superimposed cellulitis. 2. History of squamous cell carcinoma, status post Mohs done at [facility] couple of months ago followed by nonhealing wounds, treated with empiric outpatient oral antibiotics, which failed. 3. Hypertension. 4. Gastroesophageal reflux disease. 5. Hearing loss. Plan: Plan of Care DC Dapto Zosyn and micafungin on discharge Linezolid for 10 days, prescription in chart Case management to assist with discharge antibiotic Continue local wound care as directed Elevate lower extremity Patient will need to make appointment with dermatology for removal of right anterior squamous cell lesion DAVY VILLAR MD Apr 22, 2021 08:17
[2021-04-22] MEDS: HEPARIN for SUB-Q USE 5,000 UNIT/ML VIAL. SQ SCH (09:00)
[2021-04-22] MEDS: LACTOBACILLUS RHAMNOSUS GG 1 CAPSULE. PO SCH (10:12)
[2021-04-22] MEDS: SENNOSIDES/DOCUSATE 8.6/50MG TABLET. PO SCH (10:12)
[2021-04-22 11:01] VITALS: BP 138/63
[2021-04-22] MEDS: oxyCODONE/APAP 5/325 1 TAB TABLET PO PRN (11:22)
--- NOTE | 2021-04-22 13:26 | PDOC ---
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 Cataract surgery Hysterectomy History of Present Illness History of Present Illness 04/22/2021: Pt seen and examined. Discussed with RN. Chart reviewed. Wound dressings being replaced during visit. Pt considering paying [id number] for hyperbaric treatment. 04/21/2021: Pt seen and examined. Chart reviewed. Discussed with RN. Pt cooperative, appreciative of care team's efforts. She expressed frustration about how long her legs are taking to heal. Wound dressings intact, clean, dry. 04/20/2021: Pt was seen and examined. Chart reviewed. Pt appears comfortable in NAD, talkative during interview, and smiling on approach. States that she has not had a BM since Thursday (4 days prior). Mariya states that she has a previous hx of constipation since and has been taking senna and dulcolax with relief. Pt states that she has not tried milk of magnesia but is open to continuing. She denies any current pain. Pt also notes decreased appetite with only consuming a probiotic yogurt this morning. 04/19/2021: Pt was seen and examined. Chart reviewed. Discussed with Wound Care. Discussed with RN. Pt appears comfortable in NAD and talkative during interview. 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 0.9 % NS running at 50 ml/hr Vitals/I&O Vitals/I&O: Vital Signs Date Time Temp Pulse Resp B/P (MAP) Pulse Ox O2 Delivery O2 Flow Rate FiO2 04/22/21 11:01 98.2 62 18 138/63 (88) 95 Room Air 98.2 I & O 04/21/21 04/21/21 04/22/21 15:00 23:00 07:00 Intake Total 750 ml 300 ml Balance 750 ml 300 ml Physical Exam Physical Exam: GENERAL: Alert, oriented x 3 female, lying in bed comfortably, in no acute distress. HEENT: Normocephalic, atraumatic. Anicteric. No thrush. NECK: Supple, no JVD. LUNGS: Clear bilaterally. No wheezing. HEART: S1, S2. No gallops or murmurs. ABDOMEN: Soft, nontender, nondistended. EXTREMITIES: No edema, no cyanosis. SKIN: There are ulcers present in both the lower extremities, superficial right , 2 left around the almanza with some yellowish granulation tissue with surrounding mild redness mainly over the right almanza, tender. No gross purulence. No bone exposure. NEUROLOGIC: Alert, oriented x 3, grossly nonfocal. PSYCHIATRIC: Calm and cooperative. General: Alert, Oriented X3, Cooperative Heart: Regular rate, Normal S1, Normal S2 Lungs: Clear Abdomen: Soft, No tenderness Extremities: No clubbing, No cyanosis, Normal pulses Skin: Other (Bandage to BL anterior shins and ankles. No obvious worsening erythema from previous day markings. ) Labs Labs: Laboratory Tests Test 04/22/21 06:10 White Blood Count 4.9 x10^3/uL (4.0-11.0) Red Blood Count 4.18 x10^6/uL (3.50-5.40) Hemoglobin 12.6 g/dL (12.0-15.5) Hematocrit 37.3 % (36.0-47.0) Mean Corpuscular Volume 89 fL (79-100) Mean Corpuscular Hemoglobin 30 pg (25-35) Mean Corpuscular Hemoglobin Concent 34 g/dL (31-37) Red Cell Distribution Width 13.9 % (11.5-14.5) Platelet Count 263 x10^3/uL (140-400) Neutrophils (%) (Auto) 55 % (31-73) Lymphocytes (%) (Auto) 33 % (24-48) Monocytes (%) (Auto) 10 % (0-9) Eosinophils (%) (Auto) 1 % (0-3) Basophils (%) (Auto) 1 % (0-3) Neutrophils # (Auto) 2.7 x10^3/uL (1.8-7.7) Lymphocytes # (Auto) 1.6 x10^3/uL (1.0-4.8) Monocytes # (Auto) 0.5 x10^3/uL (0.0-1.1) Eosinophils # (Auto) 0.1 x10^3/uL (0.0-0.7) Basophils # (Auto) 0.0 x10^3/uL (0.0-0.2) Sodium Level 138 mmol/L (136-145) Potassium Level 3.2 mmol/L (3.5-5.1) Chloride Level 104 mmol/L (98-107) Carbon Dioxide Level 26 mmol/L (21-32) Anion Gap 8 (6-14) Blood Urea Nitrogen 10 mg/dL (7-20) Creatinine 0.9 mg/dL (0.6-1.0) Estimated GFR (Cockcroft-Gault) 60.1 Glucose Level 80 mg/dL (70-99) Calcium Level 8.2 mg/dL (8.5-10.1) Assessment and Plan Assessmemt and Plan 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 Cataract surgery Hysterectomy Plan: Wound care Continue antibiotics (Zosyn, Dapto) Continue micafungin Appreciate subspecialty input (ID) Cardiac monitoring Trend labs DVT prophylaxis Full code Probable discharge if okay with ID Comment Review of Relevant I have reviewed the following items kimberly (where applicable) has been applied. Justifications for Admission General Conditions Other justification for admit: Bilateral lower extremity cellulitis Other Justification SHIN WU III DO Apr 22, 2021 13:26
[2021-04-22] MEDS: MICAFUNGIN 100 MG in IV DEXTROSE 5% 100ML 100 ML IV SCH (13:55)
[2021-04-22] MEDS: DAPTOMYCIN IV SCH ×2 (14:00→15:37)
[2021-04-22] MEDS: NORMAL SALINE IV SCH ×2 (14:00→15:37)
--- NOTE | 2021-04-22 14:11 | NUR ---
SW following. Discussed with RN, pt from home alone, room air, regular diet, gets around ok. Pt on 2 IV abx. Interested in life alert button. Pietro Ritter RN meeting with pt to gilbert[facility] if she would be interested in home health services upon discharge. [facility] will continue to follow. Addendum: 04/22/21 at 1509 by OBEY PHAN Pt has had [facility] before and would like them again. Pt accepted with [facility].
[2021-04-22] MEDS ORDERED: HYDR-2761 PO (14:34)
--- NOTE | 2021-04-22 14:35 | SNU/HH DC ---
DISCHARGE WITH HOME HEALTH DISCHARGE INFORMATION: Condition on Discharge: Stable HOME HEALTH: Face to Face: I certify this patient is under my care and that I, or a nurse practitioner or physician's legislative assistant working with me, had a face to face encounter that meets the physician face to face encounter requirements with this patient on []. Medical Complications: Other (Lower extremity wounds) Snf For: claims adjustor For Eval/Treatment: Yes Physical Therapy For: Evalulation/Treatment Occupational Therapy For: Evaluation/Treatment Home Health Aide For: Self-care MALARIOLOGIST For: Community Resources Pt Meets Homebound Status: Poor coordination w/ amb. POST DISCHARGE ORDERS: Activity Instructions for Disc: Activity as tolerated DIET AFTER DISCHARGE: Cardiac Wound/Incision Care: May get incision wet TREATMENT/EQUIPMENT ORDERS: Adaptive Equipment Issued: None CERTIFICATION STATEMENT: Certification Statement: Certification Statement: Based on the above finding, I certify that this patient is confined to the home and needs intermittent mcfp care, physical therapy and/or speech therapy, or continues to need occupational therapy.~ This patient is under my care, and I have initiated the establishment of the plan of care.~ This patient will be followed by myself or a community physician who will periodically review the plan of care. Home Meds Active Scripts Hydrocodone Bit/Acetaminophen (HYDROCODONE-APAP 5-325 ) 1 Tab Tablet, 1 TAB PO PRN Q4HRS PRN for MILD PAIN 1-3 for 14 Days, #20 TAB Prov:CASTLE,NIAL K III DO 04/22/21 Sennosides/Docusate Sodium (SENNA-TIME S TABLET) 1 Each Tablet, 1 TAB PO DAILY, #60 CAP 0 Refills Prov:NICKEL,SHELTON L SPRING ASSEMBLER 02/22/16 Reported Medications Sennosides (SENOKOT) 8.6 Mg Tablet, 1 TAB PO BID for constipation for 20 Days, #40 TAB 0 Refills 04/18/21 Diphenhydramine Hcl (DIPHENHYDRAMINE HCL) 25 Mg Tablet, 1 TAB PO QHS for allergy symptoms for 30 Days, #30 TAB 0 Refills 04/18/21 Trazodone Hcl (TRAZODONE HCL) 50 Mg Tablet, 1 TAB PO QHS for sleep, #30 TAB 1 Refill 04/18/21 Latanoprost/Pf (Latanoprost 0.005% Eye Drop) 7.5 Ml Drops, 1 DROP OU QHS for GLAUCOMA, DROP 04/18/21 Fluticasone/Salmeterol (ADVAIR HFA 230-21 MCG INHALER) 12 Gm Hfa.aer.ad, 2 INH IH BID for cough, EACH 04/18/21 Ubidecarenone (COQ10) 50 Mg Tab.chew, 100 MG PO DAILY08 for x, TAB.CHEW 04/18/21 Trazodone Hcl (TRAZODONE HCL) 100 Mg Tablet, 1 TAB PO HS, #30 TAB 1 Refill 02/11/16 Levothyroxine Sodium (LEVOTHYROXINE SODIUM) 25 Mcg Tablet, 1 TAB PO DAILY, #30 TAB 5 Refills 02/11/16 Potassium Chloride (POTASSIUM CHLORIDE ) 10 Meq Capsule.er, 10 MEQ PO BID, TAB.SR 02/11/16 Spironolactone (SPIRONOLACTONE) 25 Mg Tablet, 1 TAB PO BID, #90 TAB 1 Refill 02/11/16 Amlodipine Besylate (AMLODIPINE BESYLATE) 5 Mg Tablet, 5 MG PO BID, TAB 02/11/16 SHIN WU III DO Apr 22, 2021 14:35
--- NOTE | 2021-04-22 14:47 | NUR ---
would dressing removed to allow Dr. Cordoba to look at the wound. Spoke with wound care. The will be to seeing pt later today. Wound care instructed to reapply dressing with Xerofoam and gauze wrap.
--- NOTE | 2021-04-22 15:41 | NUR ---
Potassium 3.2, call placed to Dr. Bai, order to give Potassium 40meq X1 PO
[2021-04-22] MEDS: POTASSIUM CHLORIDE 20 MEQ TABLET.ER. PO ONE ×2 (15:45→16:00)
--- NOTE | 2021-04-22 15:56 | NUR ---
Wound/Ostomy Care Wound Type/Assessment: Patient seen per wound care follow up. See wound assessment. Patient has bilateral lower leg stasis ulcers secondary to Moh's procedure. Right lower leg is reddened, dry slough/eschar which has softened due to the use of the medi-honey gel. The left lower leg is reddened but also appears to have improved. Wounds cleansed, assessed, measured, and pictured. Patient is discharging today with Pietro DIAZ and will follow up in the wound clinic. Treatment Recommendations/Plan: Recommendations to continue with honey alginate to the wound on the left leg to help manage the drainage but to also help breakdown the slough, and to the right lower leg apply medi-honey gel to xeroform gauze and place to wound bed, then cover with ABD pads and kerlix. Change every 2-3 days. Dressings applied. No other wounds noted. Education provided: Patient educated on dressing changes and PU prevention and POC. Offloading surface/device: N/A Recommended Referrals/Tests: Patient has an appointment to follow up with us in the wound clinic on Thursday and patient is aware of this appointment as well as HH. Discharge Recommendations for dressings: Dressing change instructions left in room as well as extra honey alginate and medi-honey gel for HH as well. Bed lowered and call light in reach.
--- NOTE | 2021-04-22 16:05 | DS ---
DATE OF DISCHARGE: 04/22/2021 ADMISSION DIAGNOSIS: Lower extremity wounds. 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 CONSULTS: Vascular Surgery and ID and the Wound Care team. 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 Basically, she has squamous cell carcinoma on her ankles and shins. Because of that, she had to undergo Mohs procedure. Because of that, she developed persistent cellulitis and wounds. This has been going on since October. Once again, she presented for evaluation and treatment. We gave her IV antibiotics. The above consults were obtained. Basically, she is doing better. She wants to go home. If okay with consultants, we plan to discharge. PAST MEDICAL HISTORY: Hypothyroidism and glaucoma. DISPOSITION: Home. ACTIVITY: As tolerated. DIET: Low sodium. DISCHARGE MEDICATIONS: Please see the [facility]. Antibiotics per Infectious Disease. Hydrocodone 5 mg q.4 hours, amlodipine 5 a day, p.r.n. Benadryl, Flonase, latanoprost eye drops, Synthroid 25 a day, potassium 10 a day, senna, docusate, trazodone 100 at bedtime, Aldactone 25 a day and CoQ10. Total time [address]: Tessa TID: [id number]
--- NOTE | 2021-04-22 16:06 | NUR ---
pt tried to take potassium pills but was unable to. the pills were to large for her to swallow. she stated the potassium she has at home are capsules. She stated that she would take the potassium when she gets home.
[2021-04-23] MEDS ORDERED: HYDR-2759 PO (11:21)
== END 2021-04-22 17:40 | disposition home health service (06) | DRG 603 ==
LOC: 4 NORTH 20:00
PROVIDERS: ADMIT Family Medicine; ATTEND Family Medicine
DX: L03.115 Cellulitis of right lower limb (principal); L03.116 Cellulitis of left lower limb; E03.9 Hypothyroidism, unspecified; E86.0 Dehydration; I10 Essential (primary) hypertension; I70.209 Unspecified atherosclerosis of native arteries of extremities, unspecified extremity; J45.909 Unspecified asthma, uncomplicated; K21.9 Gastro-esophageal reflux disease without esophagitis; Z82.3 Family history of stroke; Z90.710 Acquired absence of both cervix and uterus; Z91.040 Latex allergy status; Z88.8 Allergy status to other drugs, medicaments and biological substances; Z91.048 Other nonmedicinal substance allergy status; C80.1 Malignant (primary) neoplasm, unspecified
CPT/HCPCS: 36415; 80048; 80053; 84145; 85025; 86140; 93925; J0878; J1644; J2248; J2543; J3370; J7030; J7050; J7060; G0378